=== PATIENT | female | born 1955 | race Caucasian/White ===

== ENCOUNTER 2017-07-17 18:34 | Inpatient (IN) | payer OTHER ==
[~2017-07-17] VITALS: Ht 152.4 cm; Wt 85.3 kg
[~2017-07-17 18:34] MED LIST: ATARAX,VISTARIL50 MG PO; CELEXA40 MG PO; CITALOPRAM HBR20 MG PO; CLONAZEPAM1 MG PO; CLOTRIMAZOLE-BE15 GM TP; DESYREL100 MG PO; DESYREL300 MG PO; EPIPEN ADU0.3 MG/0.3 IM; FLONASE16 G1 BOTH NARES; LAMICTAL150 M1 PO; LEVOTHYROXINE150 MCG PO; LYRICA50 MG PO; LYRICA75 MG PO; NAPROSYN500 MG PO; NAPROXEN500 MG PO; PEN-VEE K,VEET500 MG PO; SYNTHROID300 MCG PO; TOPIRAMATE25 MG PO; TRAZODONE HCL150 MG PO; VENTOLIN HFA18 GM IH; VITAMIN D31000 UNIT PO
[2017-07-17 19:51] LABS: CHLORIDE 108 mEq/L (99-109); POTASSIUM 5.3 mEq/L (3.7-5.4); SODIUM 139 mEq/L (136-147)
[2017-07-17 19:52] LABS: BASOPHIL (%) 0 % (0-1); EOSINOPHIL (%) 0 % (0-5); HEMATOCRIT 37.3 % (36.0-46.0); HEMOGLOBIN 11.7 G/DL (11.9-15.5); IMMATURE GRANULOCYTE (%) 0.2 % (0.0-0.7); LYMPHOCYTE (%) 54.5 % (15-42); LYMPHOCYTE COUNT 3.6 K/uL (1.0-2.8); MCH 22.7 PG (29.0-34.0); MCHC 31.4 G/DL (30.0-36.0); MCV 72.3 FL (83-99); MONOCYTE (%) 7.8 % (3-12); MONOCYTE COUNT 0.5 K/uL (0-0.8); NEUTROPHIL (%) 37.5 % (45-76); NEUTROPHIL COUNT 2.5 K/uL (1.8-6.4); PLATELET COUNT 251 K/uL (156-360); RBC DIS.WIDTH-CV 17.3 % (11.8-14.6); RBC DIS.WIDTH-SD 44.5 % (39-53); RED BLOOD COUNT 5.16 M/uL (3.80-5.20); WHITE BLOOD COUNT 6.6 K/uL (4.1-10.2)
[2017-07-17 19:53] LABS: GLUCOSE 96 mg/dL (70-99)
[2017-07-17 19:57] LABS: CREATININE 0.9 mg/dL (0.6-1.3); GFR ESTIMATE (CALCULATED) > 59 mL/min/; UREA NITROGEN (BUN) 18 mg/dL (9-23)
[2017-07-17 20:01] LABS: TROP-I INTERPRETATION NEGATIVE; TROPONIN-I < 0.01 ng/mL (0.0-0.30)
[2017-07-17 20:14] LABS: PTT 29.2 SEC (25-37)
[2017-07-17] MEDS ORDERED: HYDROXYZINE HCL25 MG PO (21:59)
[2017-07-17] MEDS ORDERED: KLONOPIN1 MG PO (21:59)
[2017-07-17] MEDS ORDERED: NEURONTIN400 MG PO (22:00)
[2017-07-17] MEDS ORDERED: CRESTOR5 MG PO (22:01)
[2017-07-17] MEDS ORDERED: IBUPROFEN800 MG PO (22:03)
[2017-07-17] MEDS ORDERED: FIORINAL 50-321 EACH PO (22:06)
[2017-07-17] MEDS ORDERED: CITALOPRAM HBR20 MG PO (22:09)
[2017-07-17] MEDS ORDERED: CLOTRIMAZOLE-BE15 GM TP ×2 (22:12→22:14)
[2017-07-18 01:41] VITALS: BP 111/71
[2017-07-18 03:24] LABS: BENZODIAZEPINES, URINE SCREEN Negative (200 ng/mL)
[2017-07-18 06:00] LABS: MCHC 30.6 G/DL (30.0-36.0); PLATELET COUNT 225 K/uL (156-360); RBC DIS.WIDTH-CV 17.6 % (11.8-14.6); RBC DIS.WIDTH-SD 44.9 % (39-53); WHITE BLOOD COUNT 6.4 K/uL (4.1-10.2)
[2017-07-18 06:20] LABS: CHLORIDE 106 MEQ/L (99-109); CREATININE 0.8 MG/DL (0.6-1.3); GFR ESTIMATE (CALCULATED) > 59 mL/min/; GLUCOSE 80 mg/dL (70-99); HDL CHOLESTEROL 53 MG/DL (Desirable>=50); LDL CHOLESTEROL 128 mg/dL (Desirable<100); LIPASE 43 U/L (1.0-51.0); NON-HDL CHOLESTEROL 155 mg/dL (Desirable<160); SODIUM 140 MEQ/L (136-147); TOTAL CHOLESTEROL 208 mg/dL (Desirable<200); TRIGLYCERIDES 133 MG/DL (Normal: <150); UREA NITROGEN (BUN) 15 mg/dL (9-23)
[2017-07-18 06:30] LABS: POTASSIUM 4.2 MEQ/L (3.7-5.4)
[2017-07-18 08:19] LABS: TROP-I INTERPRETATION NEGATIVE; TROPONIN-I < 0.01 ng/mL (0.0-0.30)
[2017-07-18 10:57] LABS: TROP-I INTERPRETATION NEGATIVE; TROPONIN-I < 0.01 ng/mL (0.0-0.30)
[2017-07-18 11:51] LABS: HEMOGLOBIN A1c (GLYCOHEMOGLOB) 5.5 % (Below 5.7)
[2017-07-18 15:57] VITALS: BP 114/71
[2017-07-18 20:01] VITALS: BP 107/67
[2017-07-19] VITALS: BP 113/73
[2017-07-19 04:00] VITALS: BP 100/62
[2017-07-19 07:40] VITALS: BP 109/64
[2017-07-19] MEDS ORDERED: ASPIR-LOW81 MG PO (12:17)
[2017-07-19 16:27] VITALS: BP 108/66
[2017-07-19 23:49] VITALS: BP 87/53
[2017-07-20 08:25] VITALS: BP 110/64
[2017-07-20 16:06] VITALS: BP 105/77
[2017-07-21 00:08] VITALS: BP 110/68
[2017-07-21 08:35] VITALS: BP 102/71
[2017-07-21 17:40] VITALS: BP 107/79
== END 2017-07-21 19:16 | DRG 74 ==
LOC: EME 18:34 → 5SOUTH 07-18 00:01 → EDOF 07-18 00:01 → ENRESERV 07-18 00:03 → 5SOUTH 07-18 01:40 → ENPENDDIS 07-21 16:41 → 5SOUTH 07-21 19:16
PROVIDERS: Emergency Medicine; Hospitalist
DX: M54.12 Radiculopathy, cervical region (principal); G43.109 Migraine with aura, not intractable, without status migrainosus; D56.1 Beta thalassemia; F60.7 Dependent personality disorder; F31.9 Bipolar disorder, unspecified; R45.851 Suicidal ideations; G47.33 Obstructive sleep apnea (adult) (pediatric); E66.9 Obesity, unspecified; E06.3 Autoimmune thyroiditis; F12.90 Cannabis use, unspecified, uncomplicated; F42.9 Obsessive-compulsive disorder, unspecified; F19.10 Other psychoactive substance abuse, uncomplicated; F45.9 Somatoform disorder, unspecified; E78.5 Hyperlipidemia, unspecified; F41.9 Anxiety disorder, unspecified; J45.909 Unspecified asthma, uncomplicated; Z80.8 Family history of malignant neoplasm of other organs or systems; Z68.33 Body mass index [BMI] 33.0-33.9, adult; Z82.5 Family history of asthma and other chronic lower respiratory diseases
CPT/HCPCS: 70450; 70496; 70498; 70551; 71045; 71275; 73560; 80048; 80048 91; 80061; 80306 90; 83036; 83690; 84484; 85025; 85027; 85610; 85730; 90686; 90732; 93005; 97530 GO; 99281; 99285; G0009; J1650; J2060; J2270

== ENCOUNTER 2017-07-21 18:20 | Inpatient (IN) | payer OTHER ==
[~2017-07-21] VITALS: Ht 152.4 cm; Wt 85.3 kg
[~2017-07-21 18:20] MED LIST changes: +ASPIR-LOW81 MG PO; +CRESTOR5 MG PO; +FIORINAL 50-321 EACH PO; +HYDROXYZINE HCL25 MG PO; +IBUPROFEN800 MG PO; +KLONOPIN1 MG PO; +NEURONTIN400 MG PO
[2017-07-21 19:33] VITALS: BP 112/75
[2017-07-21 19:50] VITALS: BP 112/75
[2017-07-22 07:22] VITALS: BP 114/63
[2017-07-22 15:28] VITALS: BP 103/63
[2017-07-23 07:36] VITALS: BP 128/57
[2017-07-23 15:16] VITALS: BP 104/58
[2017-07-24 07:54] VITALS: BP 90/51
[2017-07-24] MEDS ORDERED: BENADRYL ALLERG25 MG PO (10:10)
[2017-07-24] MEDS ORDERED: ARIPIPRAZOLE2 MG PO (10:10)
== END 2017-07-24 13:40 | disposition home or self-care (01) | DRG 882 ==
LOC: 1WEST 18:20 → ENRESERV 18:22 → 1WEST 19:25
DX: F45.1 Undifferentiated somatoform disorder (principal); F31.9 Bipolar disorder, unspecified; F41.1 Generalized anxiety disorder; F41.8 Other specified anxiety disorders; F60.9 Personality disorder, unspecified; R51 Headache; G47.33 Obstructive sleep apnea (adult) (pediatric); Z63.0 Problems in relationship with spouse or partner; E06.3 Autoimmune thyroiditis; E66.9 Obesity, unspecified; Z68.36 Body mass index [BMI] 36.0-36.9, adult